=== PATIENT | female | born 1975 | race Hispanic/Latino ===

== ENCOUNTER 2020-05-19 08:39 | Outpatient (CLI) | payer OTHER, SELFPAY ==
--- NOTE | ~2020-05-19 | XR_ITS ---
XR hip LT 2V w AP pelvis DATE: 05/19/2020 09:11 INDICATION: Nontraumatic left hip TECHNIQUE: AP pelvis. AP and lateral views of left hip. COMPARISON: None FINDINGS: No pelvic fracture or bone destruction. The pubic symphysis and sacroiliac joints are inta ct. Bilateral fallopian tube radiopaque devices are present. IMPRESSION: Bilateral Essure tubal devices. Reviewed, dictated and finalized at location B.
--- NOTE | ~2020-05-19 | US_ITS ---
EXAMINATION: US soft tissue groin RT DATE: 05/19/2020 09:59 INDICATION: Right inguinal mass TECHNIQUE: Multiple grayscale and Doppler ultrasound images of the region of concern at the right sushma in were obtained. COMPARISON: None FINDINGS: The region of concern there is a 4 x 4 by 5 mm anechoic cyst with posterior acoustic enhancement cent imeters in the subcutaneous fat centered 1.3 cm deep to the skin surface and 3 cm medial to the commo n femoral artery and vein. No evident solid soft tissue component or internal flow on color Doppler. IMPRESSION: 1. Nonspecific likely benign simple appearing 5 cm cystic lesion in the subcutaneous fat at the regio n of concern. Reviewed, dictated and finalized at location A. IMPRESSION: 1. Nonspecific likely benign simple appearing 5 cm cystic lesion in the subcuta neous fat at the region of concern.
== END 2020-05-19 08:40 | disposition home or self-care (01) ==
LOC: ANHIMG 08:48
PROVIDERS: PCP Family Medicine; Visit Provider Physician Assistant
DX: R19.03 Right lower quadrant abdominal swelling, mass and lump (principal); Z97.5 Presence of (intrauterine) contraceptive device
CPT/HCPCS: 73502; 76882

== ENCOUNTER 2021-02-20 16:57 | Outpatient (CLI) | payer OTHER, SELFPAY | END 2021-02-20 16:58 | disposition home or self-care (01) | LOC: ANHCOVIDVC 16:57 | PROVIDERS: PCP Family Medicine | DX: Z23 Encounter for immunization (principal) | CPT/HCPCS: 0001A; 91300 ==

== ENCOUNTER 2021-03-14 17:31 | Outpatient (CLI) | payer OTHER, SELFPAY | END 2021-03-14 17:32 | disposition home or self-care (01) | LOC: ANHCOVIDVC 17:32 | PROVIDERS: PCP Family Medicine | DX: Z23 Encounter for immunization (principal) | CPT/HCPCS: 0002A; 91300 ==

== ENCOUNTER 2022-01-29 12:50 | Outpatient (CLI) | payer OTHER, SELFPAY | END 2022-01-29 12:51 | disposition home or self-care (01) | LOC: ANHAUDIO 12:51 | PROVIDERS: PCP Family Medicine; Visit Provider Otolaryngology | DX: H93.19 Tinnitus, unspecified ear (principal) | CPT/HCPCS: 92557; 92567 ==

== ENCOUNTER 2022-05-01 12:30 | Emergency (ER) | payer OTHER, SELFPAY ==
[2022-05-01 12:33] VITALS: BP 159/79; PULSE 70; RESP 18; TEMP 36.6; O2SAT 100
--- NOTE | 2022-05-01 12:36 | ECG_ITS ---
Measurements Intervals [place] Rate: 63 P: 8 MD: 121 QRS: 9 QRSD: 95 T: 27 QT: 387 QTc: 399 Interpretive Statements SINUS RHYTHM LOW-VOLTAGE QRS PRECORDIAL LEADS BORDERLINE ECG NO PREVIOUS ECG AVAILABLE FOR COMPARISON Electronically Signed On 05-01-2022 15:06:30 CDT by Tommy Hankins M.D.
--- NOTE | 2022-05-01 13:03 | ED.ALLEREA ---
HPI - Allergic Reaction General Chief complaint: Allergic Reaction Stated complaint: covid vaccine reaction Time Seen by Provider: 05/01/22 12:41 History of Present Illness HPI narrative: 47-year-old female presents the emergency room for evaluation of adverse reaction to the Pfizer COVID-vaccine. Patient states that approximate 11:00 this morning she received her third Pfizer shot, and within 30 minutes began experiencing difficulty breathing shortness of breath, pruritus to her chest and her back and right arm. Patient states that she immediately took 50 of Benadryl and approximately 30 minutes later symptoms began to resolve. Related Data Allergies Allergy/AdvReac Type Severity Reaction Status Date / Time poison maame extract Allergy Mild RASH, Verified 02/08/22 13:10 ITCHING Review of Systems Review of Systems: CONSTITUTIONAL: Denies fever, chills, or sweats. EYES: Denies visual changes, redness, or discharge. ENT: Denies rhinorrhea, congestion, sore throat, or otalgia. CARDIOVASCULAR: Denies chest pain, palpitations, or edema. RESPIRATORY: Reports dyspnea. GASTROINTESTINAL: Denies abdominal pain, nausea, vomiting, or diarrhea. GENITOURINARY: Denies dysuria or hematuria. SKIN: Reports itching. MUSCULOSKELETAL: Denies back pain, joint pain, or myalgia. NEUROLOGIC: Denies headache, numbness, dizziness, or weakness. PSYCHIATRIC: Denies anxiety or depression. [facility] Past Medical History Medical History (Updated 05/01/22 @ 14:56 by Jules Grayson, LOG CHAIN WORKER) Asthma Family History Family History Grandparent Diabetes mellitus Cerebrovascular accident Mother Hypertension Family history of elevated blood lipids Social History Social History Smoking status: Never smoker Second hand tobacco smoke exposure: No Alcohol intake: current Exam Narrative: GENERAL: Well-appearing, well-nourished, and in no acute distress. HEAD: Normocephalic, atraumatic. EYES: PERRLA and EOMI. ENT: Nares clear, no rhinorrhea or epistaxis. Mucous membranes moist. Oropharynx without tonsillar hypertrophy exudate or other lesions. Bilateral TMs pearly moise nonbulging NECK: Supple. No adenopathy or masses. No carotid bruits or JVD CHEST: Clear to auscultation. No respiratory distress. No wheezes rales or rhonchi HEART: Regular rate and rhythm. No murmur heard. Normal peripheral pulses. EXTREMITIES: Normal range of motion. No edema. SKIN: Warm, dry, no rash. NEURO: No focal deficits. Alert and oriented x3. PSYCH: Normal mood and affect. Course Course Emergency Course: 1300: [facility] report completed. Vital Signs Vital signs: Vital Signs Temperature 36.6 C 05/01/22 12:33 Pulse Rate 70 05/01/22 12:33 Respiratory Rate 18 05/01/22 12:33 Blood Pressure 159/79 H 05/01/22 12:33 Pulse Oximetry 100 05/01/22 12:33 Oxygen Delivery Room Air 05/01/22 12:33 Temperature 36.6 C 05/01/22 12:33 Pulse Rate 70 05/01/22 12:33 Respiratory Rate 18 05/01/22 12:33 Blood Pressure 159/79 H 05/01/22 12:33 Pulse Oximetry 100 05/01/22 12:33 Oxygen Delivery Room Air 05/01/22 12:33 Discharge Plan Discharge Clinical Impression: Adverse reaction to drug Patient Disposition: Home, Self-Care Condition: Stable Instructions: Antibiotic Form, Adverse Drug Reaction (ED) Prescriptions: New prednisone 20 mg tablet 60 mg PO DAILY 5 Days Qty: 15 0RF No Action albuterol sulfate [Ventolin HFA] 90 mcg/actuation HFA aerosol inhaler 1 inh inhalation Q4H PRN (Reason: shortness of breath or wheezing) Qty: 8.5 0RF fluticasone propionate 50 mcg/actuation spray,suspension 1 spray intranasal BID Qty: 16 0RF Rx Instructions: administer into each nostril Follow-up/Referrals: Stacey Richard MD [Primary Care Provider] - Time of Disposition: 14:57
[2022-05-01] MEDS: FAMOTIDINE 20 MG/2 ML VIAL IV PUSH (13:12)
[2022-05-01] MEDS: methylPREDNISolone SOD SUCC 125 MG VIAL IV PUSH (13:12)
== END 2022-05-01 16:00 | disposition home or self-care (01) ==
PROVIDERS: Emergency Provider Nurse Practitioner Family; PCP Family Medicine
DX: R06.02 Shortness of breath (principal); L29.9 Pruritus, unspecified; R94.31 Abnormal electrocardiogram [ECG] [EKG]; T50.B95A Adverse effect of other viral vaccines, initial encounter
CPT/HCPCS: 93005; 96374; 96375; 99284; J2930

== ENCOUNTER 2023-01-13 20:48 | Emergency (ER) | payer OTHER, SELFPAY ==
--- NOTE | ~2023-01-13 | XR_ITS ---
EXAMINATION: XR chest 2V DATE: 01/13/2023 21:36 INDICATION: Sternal chest pain/pressure and shortness of breath TECHNIQUE: PA and lateral views of the chest were obtained. COMPARISON: None FINDINGS: The lungs are clear with no focal airspace opacities, pulmonary edema, pleural effusion or pneumothor ax. The cardiomediastinal silhouette is normal. Mild thoracic spondylosis. IMPRESSION: 1. No acute cardiopulmonary disease. Reviewed, dictated and finalized at location A. RAFT STRUCTURAL REPAIR MECHANIC
[2023-01-13 20:53] VITALS: BP 140/79; PULSE 107; RESP 20; TEMP 36.4; O2SAT 97
--- NOTE | 2023-01-13 20:56 | ECG_ITS ---
Measurements Intervals [place] Rate: 90 P: 76 NC: 156 QRS: 34 QRSD: 95 T: 69 QT: 347 QTc: 426 Interpretive Statements SINUS RHYTHM NORMAL ECG COMPARED TO ECG 05/01/2022 12:40:16 NO SIGNIFICANT CHANGES Electronically Signed On 01-13-2023 21:06:52 MATERIAL CARRIER by Aureliano Atwood D.O.
[2023-01-13 21:30] LABS: Basophils Percent Auto 0.5 % (0.2-1.2); Eosinophils Absolute Auto 0.6 K/mm3 (0-0.3); Eosinophils Percent Auto 14.8 % (0-4.4); Hematocrit 39.5 % (37.0-47.0); Hemoglobin 13.3 g/dL (12.0-15.0); Immature Granulocyte Absolute 0.01 K/mm3 (0.00-0.031); Immature Granulocyte Percent A 0.2 % (0-0.5); Lymphocytes Percent Auto 24.2 % (18.3-44.2); Mean Corpuscular HGB Conc 33.7 g/dl (32-36); Mean Corpuscular Hemoglobin 31.1 pg (26-34); Mean Corpuscular Volume 92.3 fl (80-100); Mean Platelet Volume 10.4 fl (7.4-10.4); Monocytes Absolute Auto 0.6 K/mm3 (0.1-0.6); Monocytes Percent Auto 13.8 % (2.6-8.5); Neutrophils Absolute Auto 1.9 K/mm3 (1.3-6.7); Neutrophils Percent Auto 46.5 % (45.5-73.1); Platelet Count Result 207 k/mm3 (150-375); Red Blood Count 4.28 M/mm3 (4.2-5.4); Red Cell Distribution Width 13.3 % (11.5-14.5); White Blood Count 4.1 K/mm3 (4.5-10.0)
[2023-01-13 21:40] LABS: Alanine Aminotransferase 101 U/L (6-35); Albumin Level 4.5 g/dL (3.5-5.1); Alkaline Phosphatase 63 U/L (38-126); Anion Gap 7 mmol/L (8-16); Aspartate Amino Transferase 545 U/L (14-36); Bilirubin,Total 0.5 mg/dL (0.2-1.3); Blood Urea Nitrogen 10 mg/dL (7-17); Calcium 9.1 mg/dL (8.4-10.2); Carbon Dioxide 30 mmol/L (22-30); Chloride 103 mmol/L (98-107); Estimated Glomerular Filt Rate > 60; Glucose 93 mg/dL (65-110); Potassium 3.9 mmol/L (3.4-5.0); Sodium 140 mmol/L (137-145)
[2023-01-14] VITALS (8 sets, daily range): BP systolic 101–127; BP diastolic 61–78; PULSE 70–89; RESP 18–24; O2SAT 93–98
[2023-01-14] MEDS: predniSONE 20 MG TABLET 60 MG PO (01:24)
[2023-01-14] MEDS: ALBUTEROL SULFATE NEB 2.5 MG/3 ML INH INHALATION (01:26)
[2023-01-14] MEDS: IPRATROPIUM BR 0.02% INH SOLN 0.5 MG/2.5 ML VIAL INHALATION (01:26)
--- NOTE | 2023-01-14 01:42 | ED.GENADULT ---
HPI - General Adult General Chief complaint: Asthma Stated complaint: Short of breath Time Seen by Provider: 01/14/23 00:56 History of Present Illness HPI narrative: Patient 47-year-old female who presents the emergency department with chief complaint of shortness of breath. Patient reports that she has history of asthma and reports that she has been wheezing worse over the last week reports has been using her inhaler more frequently and notes she has had a little bit of nasal congestion patient is concerned that she is developing a sinus infection although her symptoms have only been ongoing for approximately 7 days. Related Data Allergies Allergy/AdvReac Type Severity Reaction Status Date / Time COVID-19 vaccine, mRNA, Allergy Severe Dyspnea / Verified 05/10/22 08:11 [id number], L SOB poison maame extract Allergy Mild RASH, Verified 02/08/22 13:10 ITCHING Review of Systems Review of Systems: A 10 system review of systems was completed on the patient and is negative except for what is stated in the HPI. Nursing and ancillary documentation was reviewed. [facility], [facility] Past Medical History Medical History (Updated 01/14/23 @ 01:46 by Vishal Powell MD) Asthma Family History Family History Grandparent Diabetes mellitus Cerebrovascular accident Mother Hypertension Family history of elevated blood lipids Social History Social History Smoking status: Never smoker Second hand tobacco smoke exposure: No Alcohol intake: current Exam Narrative: GENERAL: Well-appearing, well-nourished, and in no acute distress. HEAD: Normocephalic, atraumatic. EYES: PERRLA and EOMI. ENT: Nares clear, no rhinorrhea or epistaxis. Mucous membranes moist. NECK: Supple. CHEST: Clear to auscultation. No respiratory distress. HEART: Regular rate and rhythm. No murmur heard. Normal peripheral pulses. ABDOMEN: Soft, nontender, nondistended, normal active bowel sounds. EXTREMITIES: Normal range of motion. No edema. SKIN: Warm, dry, no rash. NEURO: No focal deficits. Alert and oriented x3. PSYCH: Normal mood and affect. Course Vital Signs Vital signs: Vital Signs Temperature 36.4 C L 01/13/23 20:53 Pulse Rate 107 H 01/13/23 20:53 Respiratory Rate 20 01/13/23 20:53 Blood Pressure 140/79 01/13/23 20:53 Pulse Oximetry 97 01/13/23 20:53 Oxygen Delivery Room Air 01/13/23 20:53 Temperature 36.4 C L 01/13/23 20:53 Pulse Rate 83 01/14/23 01:46 Respiratory Rate 20 01/14/23 01:46 Blood Pressure 112/64 01/14/23 01:46 Pulse Oximetry 96 01/14/23 01:46 Oxygen Delivery Room Air 01/13/23 20:53 Medical Decision Making MDM Narrative Medical decision making narrative: Differential diagnosis includes asthma exacerbation, upper respiratory infection, viral sinusitis Chest x-ray interpreted by me shows no focal infiltrate Currently the patient is less than 10 days of onset of symptoms and is most likely viral sinusitis. The patient will be started on steroids patient will also be provided a antitussive agent. Vital Signs Vital Signs: Vital Signs Temperature 36.4 C L 01/13/23 20:53 Pulse Rate 107 H 01/13/23 20:53 Respiratory Rate 20 01/13/23 20:53 Blood Pressure 140/79 01/13/23 20:53 Pulse Oximetry 97 01/13/23 20:53 Oxygen Delivery Room Air 01/13/23 20:53 Temperature 36.4 C L 01/13/23 20:53 Pulse Rate 83 01/14/23 01:46 Respiratory Rate 20 01/14/23 01:46 Blood Pressure 112/64 01/14/23 01:46 Pulse Oximetry 96 01/14/23 01:46 Oxygen Delivery Room Air 01/13/23 20:53 Lab Data 01/13/23 21:20 01/13/23 21:20 Labs: Lab Results 01/13/23 01/13/23 01/14/23 Range/Units 21:20 21:20 01:44 WBC 4.1 L (4.5-10.0) K/mm3 RBC 4.28 (4.2-5.4) M/mm3 Hgb 13.3 (12.0-15.0) g/dL Hct 39.5 (37.0
[2023-01-14 04:52] LABS: Influenza A QL RT-PCR Negative (Negative); Influenza B QL RT-PCR Negative (Negative); SARS-CoV-2 RNA PCR Negative
== END 2023-01-14 03:15 | disposition home or self-care (01) ==
PROVIDERS: Emergency Provider Emergency Medicine; PCP Family Medicine
DX: J45.901 Unspecified asthma with (acute) exacerbation (principal); J06.9 Acute upper respiratory infection, unspecified; Z20.822 Contact with and (suspected) exposure to COVID-19
CPT/HCPCS: 36415; 71046; 80053; 85025; 87636; 93005; 94640; 99284; J7512

== ENCOUNTER 2023-02-04 07:46 | Outpatient (CLI) | payer OTHER, SELFPAY ==
--- NOTE | ~2023-02-04 | US_ITS ---
Limited Abdominal Sonogram: Real-time sonographic imaging of the right upper quadrant was performed. Clinical History: Abnormal levels of serum enzymes Findings: The liver appears normal with no evidence of solid mass lesion or bile duct dilatation. He patic cyst measures 2.3 cm in diameter Main portal vein demonstrates normal direction of flow. The ga llbladder is well distended, and contains echogenic, shadowing gallstones. Gallbladder wall is mildly thickened to 5 mm. The common bile duct measures 4 mm. The visualized pancreas, aorta, and IVC are unremarkable. Right kidney measures 8.8 cm in length, without evidence for hydronephrosis. Impression: Cholelithiasis. Mild gallbladder wall thickening raises the possibility of superimposed acute cholecystitis. Correlat e clinically. Consider HIDA scan for further evaluation as indicated. Reviewed, dictated and finalized at [facility]. Impression: Cholelithiasis. Mild gallbladder wall thickening raises the possibility of superimposed acute c holecystitis. Correlate clinically. Consider HIDA scan for further evaluation a s indicated.
== END 2023-02-04 07:47 ==
LOC: MICIMG 07:47
PROVIDERS: PCP Family Medicine; Visit Provider Physician Assistant Medical
DX: R74.8 Abnormal levels of other serum enzymes (principal); K80.20 Calculus of gallbladder without cholecystitis without obstruction; K82.9 Disease of gallbladder, unspecified
CPT/HCPCS: 76705

== ENCOUNTER 2025-05-31 10:58 | Outpatient (CLI) | payer BC, SELFPAY ==
--- NOTE | ~2025-05-31 | MM_ITS ---
EXAMINATION: screening [facility] BI w nisla INDICATION: Asymptomatic, referred for screening mammogram COMPARISON: 08/12/2018 TECHNIQUE: Digital Breast Tomosynthesis CC, MLO views of Both breasts were obtained with computer-ai ded detection to assist in interpretation of the study. FINDINGS: The breasts are heterogeneously dense, which may obscure small masses. There is a group of microcalcifications in the superior lateral right breast at mid to posterior dept h centered at 5.7 cm posterior to the nipple. Elsewhere, there are no mammographic features of malignancy. IMPRESSION: 1. Right breast Incompletely characterized group of calcifications. 2. No evidence of malignancy in the Left breast. RECOMMENDATION: Right breast Diagnostic mammogram with true lateral, and appropriate magnification views. BI-RADS Category 0: Incomplete: Needs additional imaging evaluation. Reviewed, dictated and finalized at location B. IMPRESSION: 1. Right breast Incompletely characterized group of calcifications. 2. No evidence of malignancy in the Left breast. RECOMMENDATION: Right breast Diagnostic mammogram with true lateral, and appropriate magnificat ion views. BI-RADS Category 0: Incomplete: Needs additional imaging evaluation.
--- OUTSIDE RECORDS SUMMARY | 2025-05-31 11:03 | XMS_ITS | Clinical Summary ---
Author Organization [facility] Address [address] [place] [address] Phone Care Team Providers Care Auriculotherapist Name Role Phone Unavailable Primary Care Provider Unavailabl e Allergies No known active allergies Medications fluticasone propion-salmete roL (ADVAIR DISKUS,WIXELA INHUB) 100-50 mcg/dose disk inhaler Take 1 Puff by inhalation 2 times daily. Active Active Problems No known active problems Family History Medical History Relation Name Comments No Known Problems Brother No Known Problems Daughter 1 No Known Problems Daughter 2 No Known Problems Daughter 3 Other Father Other Maternal Grandfather COPD Diabetes Maternal Grandmother passed of a heart attack Other Mother alzheimers Thyroid Disease Mother Other Paternal Grandfather alzheim ers Ovarian Cancer Paternal Grandmother No Known Problems Sister 1 No Known Problems Sister 2 Relation Name Status Comments Brother Alive Daughter 1 Alive Daughter 2 Alive Daughter 3 Alive Father Maternal Grandfather Maternal Grandmother Mother Alive Paternal Grandfather Paternal Grandmother Sister 1 Alive Sister 2 Alive Social History Tobacco Use Types Packs/Day Years Used Date Smoking Tobacco: Never Passive Smoke Exposure: Never Smokeless Tobacco: Never Alcohol Use Standard Drinks/Week Comments Yes 0 (1 standard drink = 0.6 oz pur e alcohol) socially Comments No Sex and Gender Information Value Date Recorded Sex Assigned at Not on file Legal Sex Female 10:08 AM CDT Gender Identity Not on file Sexual Orientation Not on file Last Filed Vital Signs Vital Sign Reading Time Taken Comments Blood Pressure 126/80 11/26/2023 3:04 PM MANAGER EVENT Pulse - - Temperature - - Respiratory Rate - - Oxygen Saturation - - Inhaled Oxygen Concentration - - Weight 86.2 kg (190 lb) 11/26/2023 3:04 PM MANAGER EVENT Height 149.9 cm (4' 11) 11/26/2023 3:04 PM MANAGER EVENT Body Mass Index 38.38 11/26/2023 3:04 PM MANAGER EVENT Plan of Treatment Health Maintenance Due Date Last Done Comments DTAP/TDAP/TD VACCINES (1 - Tdap) 02/09/1992 HEPATITIS B VACCINES (1 of 3 - 19+ 3-dose series) 01/11 BREAST CANCER SCREENING 2013 COLORECTAL SCREENING 2018 Colorectal Cancer Screening 2018 FIT-DNA Q 3 years 2018 FIT/FOBT Q 1 year 2018 Flex Sig/CT Colonography Q 5 years 2018 ZOSTER VACCINE (1 of 2) 2023 INFLUENZA VACCINE (#1) 2025 11/18/2023 PAP SMEAR 11/26/2026 11/26/2023 CERVICAL CANCER SCREENING 11/26/2028 HPV/Cotest (21-29) 11/26/2028 11/26/2023 HPV/Cotest (30-65) 11/26/2028 11/26/2023 Procedures Procedure Name Priority Date/Time Associated Diagnosis Comments CERV/VAG CYTO AGE BASED SCREEN PAP Routine 11/26/2023 4:16 PM MANAGER EVENT Well woman exam with routine gynecological exam Screening for HPV (human papillomavirus) Screening for venereal disease (VD) Cervical cancer screening from Last 3 Months or Most Recently Relevant to Health Maintenance Results * CERV/VAG CYTO AGE BASED SCREEN PAP (11/26/2023 4:16 PM MANAGER EVENT) COMMENT (PAP): [facility] Comment: This order for age-based cervical cancer and STI screening follows ACOG guidelines(PB 168, 140, LYY517). See individual assays for performing site location. CLINICAL INFORMATION [facility] Comment:None given LAST MENSTRUAL PERIOD [facility] Comment:NONE GIVEN PREV PAP: [facility] Comment:NONE GIVEN PREV BX: [facility] Comment:NONE GIVEN SOURCE [facility] Comment:Endocervix ADEQUACY: [facility] Comment: Satisfactory for evaluation. Endocervical/transformation zone component present. Age and/or menstrual status not provided PAP INTERP [facility] Comment: Cytology Results: Negative for intraepithelial lesion or malignancy. COMMENT (PAP TEST) [facility] Comment: This Pap test has been evaluated with computer assisted technology. GROUTER HELPER: Angie Frias Comment: AGNES WILLIS(ASCP) CT screening location: [place] [address] [place] [address] EXPLANATORY NOTE [facility] Comment: EXPLANATORY NOTE: The Pap is a screening test for cervical cancer. It is not a diagnostic test and is subject to false negative and false positive results. It is most reliable when a satisfactory sample, regularly obtained, is submitted with relevant clinical findings and history, and when the Pap result is evaluated along with historic and current clinical information. HPV E6/E7 Not Detected Not Detected [facility] Comment: Methodology: [employer]-Mediated Amplification This assay detects E6/E7 viral messenger RNA (mRNA) from 14 high-risk HPV types (16,18,31,33,35,39,45,51,52,56,58,59,66,68). Cervical sources are required for HPV testing. If a vaginal source from a patient who has had a total hysterectomy with removal of cervix was submitted, please contact the testing laboratory for alternative testing options. For additional information, please refer to http://education.Heroku/faq/CQJ747q6 (This link if provided for information/ educational purposes only.) FASTING: UNKNOWN Test Performed at: [facility] [address] [place] [address] Kim FUENTES Genital SWAB OF ENDOCERVIX / Unknown 11/26/2023 4:16 PM MANAGER EVENT 11/27/2023 2:24 AM MANAGER EVENT us Gabriela Srinivasan DO PATHOLOGY/CYTOLOGY ORDERABLES F inal Result [facility] [phone] [facility] [address] [place] [address] from Last 3 Months or Most Recently Relevant to Health Maintenance Insurance BLUE ACCESS/TRUE BLUE PPO
--- OUTSIDE RECORDS SUMMARY | 2025-05-31 11:03 | XMS_ITS ---
Author Organization [facility] [employer] [place] ([address]) Address [address] [place] [address] Care Team Providers Care Process Chemist Name Role Phone Jose ManuelStacey Primary Care Provider Brigida Elliott Unavailable [phone] REASON FOR VISIT SCIT - Traditional Schedule Allergy immunotherapy Social History Sex Assigned At : Social History Observation Description Sex Assigned At Female Encounters Encounter Location Date Provider Diagnosis [facility] [address] [facility] [address] [place] [address] 05/12/2025 Brigida Valdivia Allergic rhinitis du e to pollen J30.1 ; Allergic rhinitis due to animal (cat) (dog) hair and dander J30.81 ; Other allergic rhinitis J30.89 and Other chronic allergic conjunctivitis H10.45 Assessments Encounter Date Diagnosis (ICD Code) Assessment Notes Treatment Notes Treatment Clinical Notes Section Notes 05/12/2025 Allergic rhinitis due to pollen (ICD-10 - J30.1) 05/12/2025 Allergic rhinitis due to animal (cat) (dog) hair and dander (ICD-10 - J30.81) 05/12/2025 Other allergic rhinitis (ICD-10 - J30.89) 05/12/2025 Other chronic allergic conjunctivitis (ICD-10 - H10.45) Plan Of Treatment Next Appt Details Follow Up: 1 Week, Reason: Progress Notes * Florian PEREZB:1975 (50 yo F)Acc No.[id number]:05/12/2025 SCIT-Aeroallergen Patient: Fannie BARBOSA Provider: Merlyn Valdivia MD :1975 A ge:50 Y S ex:Female Date:05/12/2025 [id number] Pcp:Stacey Richard Subjective: * Chief Complaints: * 1 . SCIT - Traditional Schedule Allergy immunotherapy. * HPI: * Introduction: The patient is here for scheduled immunotherapy. Please see the attached specialty form regarding the specifics of the administration of these vaccines. As per our protocol, they must undergo a screening health questionnaire (medication changes, reaction(s) to last immunotherapy dose(s), current health status, ACT (if appropriate), self-injectable epinephrine on patient(?) and peak flow (if appropriate)). Also, the patient must wait in our office for 30 minutes after receiving the vaccine(s). Furthermore, every patient must have an epinephrine pen (self-injectable) with them at the time of administration--and carry if for the following 1.5 hours after they leave our office. The patient must also have taken their antihistamine the day of the injection, preferably 2 hours prior. The consent form for SCIT (subcutaneous immunotherapy) is on file. * Medical History: Objective: * Vitals: Assessment: * Assessment: 1. A llergic rhinitis due to pollen - J30.1 (Primary) 2 . A llergic rhinitis due to animal (cat) (dog) hair and dander - J30.81 3 . O ther allergic rhinitis - J30.89 4 . O ther chronic allergic conjunctivitis - H10.45 Plan: * Treatment: * Procedure Codes: 9 5117 IMMUNOTHERAPY INJECTIONS * Preventive Medicine: Counseling: E xercise A void heavy lifting on days of allergy immunotherapy. M edication instruction: I njectable epinephrine education and instruction w/ discussion of signs and symptoms of anaphylaxis and reasons to seek urgent or emergent care, Watch for side effects of prescribed medications. E ducation: A ble to return demonstration of self-injectable epinephrine. * Follow Up: 1 Week * Billing Information: * Visit Code: * Procedure Codes: 42107 IMMUNOTHERAPY INJECTIONS. * Electronic signature of Lisa Valdivia MD on 05/31/2025 at 11:03 AM CDT Sign off status: Pending * Provider: Merlyn Valdivia MD Date: 0 05/12/2025 Generated for Jayla shelley/Tristan/Saqib on: 05/31/2025 11:03 AM CDT History and Physical Notes * HPI (History of Present Illness) Category Sub-Category Detail Notes Category Not es *Introduction The patient is here for scheduled immunotherapy. Please see the attached specialty form regarding the specifics of the administration of these vaccines. As per our protocol, they must undergo a screening health questionnaire (medication changes, reaction(s) to last immunotherapy dose(s), current health status, ACT (if appropriate), self-injectable epinephrine on patient(?) and peak flow (if appropriate)). Also, the patient must wait in our office for 30 minutes after receiving the vaccine(s). Furthermore, every patient must have an epinephrine pen (self-injectable) with them at the time of administration--and carry if for the following 1.5 hours after they leave our office. The patient must also have taken their antihistamine the day of the injection, preferably 2 hours prior. The consent form for SCIT (subcutaneous immunotherapy) is on file.
--- OUTSIDE RECORDS SUMMARY | 2025-05-31 11:03 | XMS_ITS | Patient Health Record ---
Author Organization [facility] ([address]) Address [address] [place] [address] Care Team Providers Care Housekeeping/Laundry Name Role Phone Jose ManuelStacey Primary Care Provider Brigida Elliott Unavailable [phone] Allergies Allergen (clinical drug ingredient) Drug/Non Drug Allergy documented on EMR Reaction Allergy Type Onset Date Status ALLERGIC TO PFIZER VACCINE (uncoded) difficulty breathing and hives Allergy Active Results Component Value Reference Range Notes Spirometry Reviewed date: Interpretation:Normal Performing Lab: Notes/Report: Normal SpiroPreBronchodilator_FVC 2.9 SpiroPostBronchodilator_FEF25_75 0 SpiroPreBronchodilator_FEF25_75 1.64 SpiroPreBronchodilator_FEV1 2.14 SpiroPrecentPredictionPost_FEF25_75 0 SpiroPrecentPredictionPost_FEV1 0 SpiroPrecentPredictionPost_FEV1_OVER_FVC 0 SpiroPrecentPredictionPost_FVC 0 SpiroPrecentPredictionPre_FEF25_75 61.9 SpiroPrecentPredictionPre_FEV1 91.8 SpiroPrecentPredictionPre_FEV1_OVER_FVC 89.2 SpiroPrecentPredictionPre_FVC 103.9 SpiroPredicted_FEF25_75 2.65 SpiroPreBronchodilator_FEV1_OVER_FVC 73.64 SpiroPreBronchodilator_PEF 4.54 SpiroPostBronchodilator_FVC 0 SpiroPostBronchodilator_FEV1 0 SpiroPostBronchodilator_FEV1_OVER_FVC 0 SpiroPostBronchodilator_PEF 0 SpiroPredicted_FVC 2.79 SpiroPredicted_FEV1 2.33 SpiroPredicted_FEV1_OVER_FVC 82.59 SpiroPredicted_PEF 5.46 Spirometry Reviewed date: Interpretation:Normal Performing Lab: Notes/Report: Normal SpiroPreBronchodilator_FVC 2.98 SpiroPostBronchodilator_FEF25_75 0 SpiroPreBronchodilator_FEF25_75 1.8 SpiroPreBronchodilator_FEV1 2.24 SpiroPrecentPredictionPost_FEF25_75 0 SpiroPrecentPredictionPost_FEV1 0 SpiroPrecentPredictionPost_FEV1_OVER_FVC 0 SpiroPrecentPredictionPost_FVC 0 SpiroPrecentPredictionPre_FEF25_75 66.9 SpiroPrecentPredictionPre_FEV1 95.3 SpiroPrecentPredictionPre_FEV1_OVER_FVC 90.8 SpiroPrecentPredictionPre_FVC 105.7 SpiroPredicted_FEF25_75 2.69 SpiroPreBronchodilator_FEV1_OVER_FVC 75.24 SpiroPreBronchodilator_PEF 5.47 SpiroPostBronchodilator_FVC 0 SpiroPostBronchodilator_FEV1 0 SpiroPostBronchodilator_FEV1_OVER_FVC 0 SpiroPostBronchodilator_PEF 0 SpiroPredicted_FVC 2.82 SpiroPredicted_FEV1 2.35 SpiroPredicted_FEV1_OVER_FVC 82.84 SpiroPredicted_PEF 5.48 Reason For Referral No Information Medications Medication SIG (Take, Route, Frequency, Duration) Notes Start Date End Date Status FEXOFENADINE HYDROCHLORIDE 180 mg 1 tab(s) orally once a day Active FLUTICASONE-SALMETEROL 500 mcg-50 mcg 1 INH inhaled 2 times a day; Duration: 90 days Active EPINEPHRINE AUTO-INJECTOR 0.3 mg as directed intramuscularly once; Duration: 1 days Active ALBUTEROL 90 mcg/inh 2 puff(s) inhaled e very 6 hours Active Social History Tobacco Use: Social History Observation Description Date Details (start date - stop date) Never Smoker NA - NA Sex Assigned At : Social History Observation Description Sex Assigned At Female Tobacco Control (Standard) Question Answer Notes Tobacco use: Nonsmoker Problems Problem Type SNOMED Code ICD Code Onset Dates Problem Status W/U Status Risk Notes Problem Morbid obesity (disorder) (170953469) Morbid (severe) obesity due to excess calories (E66.01) Active confirmed Problem Chronic allergic conjunctivitis (36656892) Other chronic allergic conjunctivitis (H10.45) Active confirmed Problem Allergic rhinitis caused by pollen (disorder) (18194561) Allergic rhinitis due to pollen (J30.1) Active confirmed Problem Allergic rhinitis (86001775) Other allergic rhinitis (J30.89) Active confirmed Problem Uncomplicated moderate persistent asthma (253041757) Moderate persistent asthma, uncomplicated (J45.40) Active confirmed Problem Chronic fatigue syndrome (disorder) (25317056) Chronic fatigue, unspecified (R53.82) Active confirmed Problem Allergic rhinitis caused by animal hair and dander (535998991074898) Allergic rhinitis due to animal (cat) (dog) hair and dander (J30.81) Active confirmed Vital Signs Oximetry 97 % 03/31/2025 Blood pressure diastolic 73 mm Hg 03/31/2025 Height 60.2 in 03/31/2025 Blood pressure systolic 115 mm Hg 03/31/2025 Weight 138.4 lbs 03/31/2025 BMI 26.85 kg/m2 03/31/2025 Encounters Encounter Location Date Provider Diagnosis [facility] [address] [place] [phone] 07/27/2024 Brigida Valdivia Moderate persistent asthma, uncomplicated J45.[address] [address] 03/31/2025 Brigida Valdivia [address] [address] 08/19/2024 Brigida Valdivia Allergic rhinitis du e to pollen J30.1 ; Moderate persistent asthma, uncomplicated J45.40 ; Allergic rhinitis due to animal (cat) (dog) hair and dander J30.81 ; Other allergic rhinitis J30.89 and Other chronic allergic conjunctivitis H10.45 [facility] [address] [address] 03/31/2025 Brigida Valdivia Allergic rhinitis du e to pollen J30.1 ; Moderate persistent asthma, uncomplicated J45.40 ; Allergic rhinitis due to animal (cat) (dog) hair and dander J30.81 ; Other allergic rhinitis J30.89 and Other chronic allergic conjunctivitis H10.45 [facility] [address] [place], [place] [address] [address] [address] 06/15/2024 Brigida Valdivia Allergic rhinitis du e to pollen J30.1 ; Allergic rhinitis due to animal (cat) (dog) hair and dander J30.81 ; Other allergic rhinitis J30.89 and Other chronic allergic conjunctivitis H10.45 [facility] [address] [place], [place] [address] [address] [address] 04/21/2025 Brigidanatalia Valdivia Allergic rhinitis du e to pollen J30.1 ; Allergic rhinitis due to animal (cat) (dog) hair and dander J30.81 ; Other allergic rhinitis J30.89 and Other chronic allergic conjunctivitis H10.45 [facility] [address] [place], [place] [address] [address] [address] 04/28/2025 Brigida Valdivia Allergic rhinitis du e to pollen J30.1 ; Allergic rhinitis due to animal (cat) (dog) hair and dander J30.81 ; Other allergic rhinitis J30.89 and Other chronic allergic conjunctivitis H10.45 [facility] [address] [place], [place] [address] [address] [address] 05/05/2025 Brigida Valdivia Allergic rhinitis du e to pollen J30.1 ; Allergic rhinitis due to animal (cat) (dog) hair and dander J30.81 ; Other allergic rhinitis J30.89 and Other chronic allergic conjunctivitis H10.45 [facility] [address] [place], [place] [address] [address] [place] [address] 05/27/2025 Brigidanatalia Villatorom Allergic rhinitis du e to pollen J30.1 ; Allergic rhinitis due to animal (cat) (dog) hair and dander J30.81 ; Other allergic rhinitis J30.89 and Other chronic allergic conjunctivitis H10.45 [facility] [address] [place], [place] [address] [address] [place] [address] 08/24/2024 Brigidanatalia Valdivia Allergic rhinitis du e to pollen J30.1 ; Allergic rhinitis due to animal (cat) (dog) hair and dander J30.81 ; Other allergic rhinitis J30.89 and Other chronic allergic conjunctivitis H10.45 [facility] [address] [place] [address] [employer] [address] [address] 08/31/2024 Brigida Valdivia Allergic rhinitis du e to pollen J30.1 ; Allergic rhinitis due to animal (cat) (dog) hair and dander J30.81 ; Other allergic rhinitis J30.89 and Other chronic allergic conjunctivitis H10.45 [facility] [address] [place], [place] [address] [address] [address] 09/07/2024 Brigida Shea Allergic rhinitis du e to pollen J30.1 ; Allergic rhinitis due to animal (cat) (dog) hair and dander J30.81 ; Other allergic rhinitis J30.89 and Other chronic allergic conjunctivitis H10.45 [facility] [address] [place] [address] [employer] [address] [address] 09/14/2024 Brigida Valdivia Allergic rhinitis du e to pollen J30.1 ; Allergic rhinitis due to animal (cat) (dog) hair and dander J30.81 ; Other allergic rhinitis J30.89 and Other chronic allergic conjunctivitis H10.45 [facility] [address] [place] [address] [employer] [address] [address] 09/21/2024 Brigidanatalia Valdivia Allergic rhinitis du e to pollen J30.1 ; Allergic rhinitis due to animal (cat) (dog) hair and dander J30.81 ; Other allergic rhinitis J30.89 and Other chronic allergic conjunctivitis H10.45 [facility] [address] [place], [place] [address] [address] [address] 09/28/2024 Brigida Shea Allergic rhinitis du e to pollen J30.1 ; Allergic rhinitis due to animal (cat) (dog) hair and dander J30.81 ; Other allergic rhinitis J30.89 and Other chronic allergic conjunctivitis H10.45 [facility] [address] [place], [place] [address] [address] [address] 10/07/2024 Brigida Shea Allergic rhinitis du e to pollen J30.1 ; Allergic rhinitis due to animal (cat) (dog) hair and dander J30.81 ; Other allergic rhinitis J30.89 and Other chronic allergic conjunctivitis H10.45 [facility] [address] [place] [address] [employer] [address] [address] 10/12/2024 Brigida Valdivia Allergic rhinitis du e to pollen J30.1 ; Allergic rhinitis due to animal (cat) (dog) hair and dander J30.81 ; Other allergic rhinitis J30.89 and Other chronic allergic conjunctivitis H10.45 [facility] [address] [place], [place] [address] [address] [place] [address] 10/19/2024 Brigida Shea Allergic rhinitis du e to pollen J30.1 ; Allergic rhinitis due to animal (cat) (dog) hair and dander J30.81 ; Other allergic rhinitis J30.89 and Other chronic allergic conjunctivitis H10.45 [facility] [address] [place] [address] [employer] [address] [address] 10/26/2024 Brigida Villatorom Allergic rhinitis du e to pollen J30.1 ; Allergic rhinitis due to animal (cat) (dog) hair and dander J30.81 ; Other allergic rhinitis J30.89 and Other chronic allergic conjunctivitis H10.45 [facility] [address] [place] [address] [employer] [address] [address] 11/09/2024 Brigidanatalia Villatorom Allergic rhinitis du e to pollen J30.1 ; Allergic rhinitis due to animal (cat) (dog) hair and dander J30.81 ; Other allergic rhinitis J30.89 and Other chronic allergic conjunctivitis H10.45 [facility] [address] [place], [place] [address] [address] [place] [address] 06/01/2024 Brigida Shea Allergic rhinitis du e to pollen J30.1 ; Allergic rhinitis due to animal (cat) (dog) hair and dander J30.81 ; Other allergic rhinitis J30.89 and Other chronic allergic conjunctivitis H10.45 [facility] [address] [place], [place] [address] [address] [place] [address] 06/08/2024 Brigida Shea Allergic rhinitis du e to pollen J30.1 ; Allergic rhinitis due to animal (cat) (dog) hair and dander J30.81 ; Other allergic rhinitis J30.89 and Other chronic allergic conjunctivitis H10.45 [facility] [address] [place] [address] [employer] [address] [place] [phone] 06/29/2024 Brigidanatalia Villatorom Allergic rhinitis du e to pollen J30.1 ; Allergic rhinitis due to animal (cat) (dog) hair and dander J30.81 ; Other allergic rhinitis J30.89 and Other chronic allergic conjunctivitis H10.45 [facility] [address] [place], [place] [address] [address] [place] [phone] 07/07/2024 Brigida Shea Allergic rhinitis du e to pollen J30.1 ; Allergic rhinitis due to animal (cat) (dog) hair and dander J30.81 ; Other allergic rhinitis J30.89 and Other chronic allergic conjunctivitis H10.45 [facility] [address] [place] [address] [employer] [address] [address] 07/14/2024 Brigidanatalia Villatorom Allergic rhinitis du e to pollen J30.1 ; Allergic rhinitis due to animal (cat) (dog) hair and dander J30.81 ; Other allergic rhinitis J30.89 and Other chronic allergic conjunctivitis H10.45 [facility] [address] [place] [address] [employer] [address] [address] 07/20/2024 Brigida Shea Allergic rhinitis du e to pollen J30.1 ; Allergic rhinitis due to animal (cat) (dog) hair and dander J30.81 ; Other allergic rhinitis J30.89 and Other chronic allergic conjunctivitis H10.45 [facility] [address] [place], [place] [address] [address] [place] [phone] 07/27/2024 Brigida Shea Allergic rhinitis du e to pollen J30.1 ; Allergic rhinitis due to animal (cat) (dog) hair and dander J30.81 ; Other allergic rhinitis J30.89 and Other chronic allergic conjunctivitis H10.45 [facility] [address] [place], [place] [address] [address] [place] [phone] 08/03/2024 Brigida Shea Allergic rhinitis du e to pollen J30.1 ; Allergic rhinitis due to animal (cat) (dog) hair and dander J30.81 ; Other allergic rhinitis J30.89 and Other chronic allergic conjunctivitis H10.45 [facility] [address] [facility] [address] [place] [address] 08/17/2024 Brigida Valdivia Allergic rhinitis du e to pollen J30.1 ; Allergic rhinitis due to animal (cat) (dog) hair and dander J30.81 ; Other allergic rhinitis J30.89 and Other chronic allergic conjunctivitis H10.45 Assessments Encounter Date Diagnosis (ICD Code) Assessment Notes Treatment Notes Treatment Clinical Notes Section Notes 06/01/2024 Allergic rhinitis due to pollen (ICD-10 - J30.1) 06/08/2024 Allergic rhinitis due to pollen (ICD-10 - J30.1) 06/15/2024 Allergic rhinitis due to pollen (ICD-10 - J30.1) 06/29/2024 Allergic rhinitis due to pollen (ICD-10 - J30.1) 07/07/2024 Allergic rhinitis due to pollen (ICD-10 - J30.1) 07/14/2024 Allergic rhinitis due to pollen (ICD-10 - J30.1) 07/20/2024 Allergic rhinitis due to pollen (ICD-10 - J30.1) 07/27/2024 Allergic rhinitis due to pollen (ICD-10 - J30.1) 08/03/2024 Allergic rhinitis due to pollen (ICD-10 - J30.1) 07/27/2024 Moderate persistent asthma, uncomplicated (ICD-10 - J45.40) 08/17/2024 Allergic rhinitis due to pollen (ICD-10 - J30.1) 08/19/2024 Allergic rhinitis due to pollen (ICD-10 - J30.1) Fannie clearly suffers from atopic disease based upon our skin testing and clinical history. Accordingly, we have introduced a new, aggressive medication regimen, discussed nasal washes and allergy-specific avoidance measures. We also discussed adjunctive therapies including subcutaneous, specific allergen immunotherapy as relates to the treatment and prevention of atopic disease. She is tolerating SCIT without large local or systemic symptoms. She was instructed to carry her epinephrine autoinjector for 2 hours after leaving the office. 08/24/2024 Allergic rhinitis due to pollen (ICD-10 - J30.1) 08/31/2024 Allergic rhinitis due to pollen (ICD-10 - J30.1) 09/07/2024 Allergic rhinitis due to pollen (ICD-10 - J30.1) 09/14/2024 Allergic rhinitis due to pollen (ICD-10 - J30.1) 09/21/2024 Allergic rhinitis due to pollen (ICD-10 - J30.1) 09/28/2024 Allergic rhinitis due to pollen (ICD-10 - J30.1) 10/07/2024 Allergic rhinitis due to pollen (ICD-10 - J30.1) 10/12/2024 Allergic rhinitis due to pollen (ICD-10 - J30.1) 10/19/2024 Allergic rhinitis due to pollen (ICD-10 - J30.1) 10/26/2024 Allergic rhinitis due to pollen (ICD-10 - J30.1) 11/09/2024 Allergic rhinitis due to pollen (ICD-10 - J30.1) 08/19/2024 Moderate persistent asthma, uncomplicated (ICD-10 - J45.40) Persistent asthma and spirometry at her initial visit showed obstruction with significant improvement post bronchodilator meeting ATS criteria for asthma. Today, spirometry is normal. ACT 23. We discussed changing inhalers, but she feels cough is resolving so plan to continue Advair and prn albuterol. Instructed to call the office if cough does not resolve in a few weeks. 03/31/2025 Allergic rhinitis due to pollen (ICD-10 - J30.1) Fannie clearly suffers from atopic disease based upon our skin testing and clinical history. Accordingly, we have introduced a new, aggressive medication regimen, discussed nasal washes and allergy-specific avoidance measures. We also discussed adjunctive therapies including subcutaneous, specific allergen immunotherapy as relates to the treatment and prevention of atopic disease. She has missed several months of immunotherapy and plan to restart. Restart at 1:10 all vials at 0.1 mL 04/21/2025 Allergic rhinitis due to pollen (ICD-10 - J30.1) 04/28/2025 Allergic rhinitis due to pollen (ICD-10 - J30.1) 05/05/2025 Allergic rhinitis due to pollen (ICD-10 - J30.1) 03/31/2025 Moderate persistent asthma, uncomplicated (ICD-10 - J45.40) Persistent asthma and spirometry at her initial visit showed obstruction with significant improvement post bronchodilator meeting ATS criteria for asthma. Today, spirometry is normal. ACT 25. Most likely asthma has improved with weight loss. Continue prn albuterol and restart Advair if needed. 05/27/2025 Allergic rhinitis due to pollen (ICD-10 - J30.1) 05/27/2025 Allergic rhinitis due to animal (cat) (dog) hair and dander (ICD-10 - J30.81) 03/31/2025 Allergic rhinitis due to animal (cat) (dog) hair and dander (ICD-10 - J30.81) Follow allergen avoidance, meds and continue SCIT as an adjunctive treatment to current regimen 05/05/2025 Allergic rhinitis due to animal (cat) (dog) hair and dander (ICD-10 - J30.81) 04/28/2025 Allergic rhinitis due to animal (cat) (dog) hair and dander (ICD-10 - J30.81) 04/21/2025 Allergic rhinitis due to animal (cat) (dog) hair and dander (ICD-10 - J30.81) 08/19/2024 Allergic rhinitis due to animal (cat) (dog) hair and dander (ICD-10 - J30.81) Follow allergen avoidance, meds and continue SCIT as an adjunctive treatment to current regimen 11/09/2024 Allergic rhinitis due to animal (cat) (dog) hair and dander (ICD-10 - J30.81) 10/26/2024 Allergic rhinitis due to animal (cat) (dog) hair and dander (ICD-10 - J30.81) 10/19/2024 Allergic rhinitis due to animal (cat) (dog) hair and dander (ICD-10 - J30.81) 10/12/2024 Allergic rhinitis due to animal (cat) (dog) hair and dander (ICD-10 - J30.81) 10/07/2024 Allergic rhinitis due to animal (cat) (dog) hair and dander (ICD-10 - J30.81) 09/28/2024 Allergic rhinitis due to animal (cat) (dog) hair and dander (ICD-10 - J30.81) 09/21/2024 Allergic rhinitis due to animal (cat) (dog) hair and dander (ICD-10 - J30.81) 09/14/2024 Allergic rhinitis due to animal (cat) (dog) hair and dander (ICD-10 - J30.81) 09/07/2024 Allergic rhinitis due to animal (cat) (dog) hair and dander (ICD-10 - J30.81) 08/31/2024 Allergic rhinitis due to animal (cat) (dog) hair and dander (ICD-10 - J30.81) 08/24/2024 Allergic rhinitis due to animal (cat) (dog) hair and dander (ICD-10 - J30.81) 08/17/2024 Allergic rhinitis due to animal (cat) (dog) hair and dander (ICD-10 - J30.81) 08/03/2024 Allergic rhinitis due to animal (cat) (dog) hair and dander (ICD-10 - J30.81) 07/27/2024 Allergic rhinitis due to animal (cat) (dog) hair and dander (ICD-10 - J30.81) 07/20/2024 Allergic rhinitis due to animal (cat) (dog) hair and dander (ICD-10 - J30.81) 07/14/2024 Allergic rhinitis due to animal (cat) (dog) hair and dander (ICD-10 - J30.81) 07/07/2024 Allergic rhinitis due to animal (cat) (dog) hair and dander (ICD-10 - J30.81) 06/29/2024 Allergic rhinitis due to animal (cat) (dog) hair and dander (ICD-10 - J30.81) 06/15/2024 Allergic rhinitis due to animal (cat) (dog) hair and dander (ICD-10 - J30.81) 06/08/2024 Allergic rhinitis due to animal (cat) (dog) hair and dander (ICD-10 - J30.81) 06/01/2024 Allergic rhinitis due to animal (cat) (dog) hair and dander (ICD-10 - J30.81) 06/01/2024 Other allergic rhinitis (ICD-10 - J30.89) 06/08/2024 Other allergic rhinitis (ICD-10 - J30.89) 06/15/2024 Other allergic rhinitis (ICD-10 - J30.89) 06/29/2024 Other allergic rhinitis (ICD-10 - J30.89) 07/07/2024 Other allergic rhinitis (ICD-10 - J30.89) 07/14/2024 Other allergic rhinitis (ICD-10 - J30.89) 07/20/2024 Other allergic rhinitis (ICD-10 - J30.89) 07/27/2024 Other allergic rhinitis (ICD-10 - J30.89) 08/03/2024 Other allergic rhinitis (ICD-10 - J30.89) 08/17/2024 Other allergic rhinitis (ICD-10 - J30.89) 08/19/2024 Other allergic rhinitis (ICD-10 - J30.89) 08/24/2024 Other allergic rhinitis (ICD-10 - J30.89) 08/31/2024 Other allergic rhinitis (ICD-10 - J30.89) 09/07/2024 Other allergic rhinitis (ICD-10 - J30.89) 09/14/2024 Other allergic rhinitis (ICD-10 - J30.89) 09/21/2024 Other allergic rhinitis (ICD-10 - J30.89) 09/28/2024 Other allergic rhinitis (ICD-10 - J30.89) 10/07/2024 Other allergic rhinitis (ICD-10 - J30.89) 10/12/2024 Other allergic rhinitis (ICD-10 - J30.89) 10/19/2024 Other allergic rhinitis (ICD-10 - J30.89) 10/26/2024 Other allergic rhinitis (ICD-10 - J30.89) 11/09/2024 Other allergic rhinitis (ICD-10 - J30.89) 03/31/2025 Other allergic rhinitis (ICD-10 - J30.89) 04/21/2025 Other allergic rhinitis (ICD-10 - J30.89) 04/28/2025 Other allergic rhinitis (ICD-10 - J30.89) 05/05/2025 Other allergic rhinitis (ICD-10 - J30.89) 05/27/2025 Other allergic rhinitis (ICD-10 - J30.89) 04/21/2025 Other chronic allergic conjunctivitis (ICD-10 - H10.45) 05/27/2025 Other chronic allergic conjunctivitis (ICD-10 - H10.45) 05/05/2025 Other chronic allergic conjunctivitis (ICD-10 - H10.45) 04/28/2025 Other chronic allergic conjunctivitis (ICD-10 - H10.45) 03/31/2025 Other chronic allergic conjunctivitis (ICD-10 - H10.45) Given ocular signs and symptoms I encouraged allergy avoidance measures and meds as above. If symptoms persist, consider adding additional medications including intraocular antihistamine/mast cell stabilizer, PRN 08/24/2024 Other chronic allergic conjunctivitis (ICD-10 - H10.45) 11/09/2024 Other chronic allergic conjunctivitis (ICD-10 - H10.45) 10/26/2024 Other chronic allergic conjunctivitis (ICD-10 - H10.45) 10/19/2024 Other chronic allergic conjunctivitis (ICD-10 - H10.45) 10/12/2024 Other chronic allergic conjunctivitis (ICD-10 - H10.45) 10/07/2024 Other chronic allergic conjunctivitis (ICD-10 - H10.45) 09/28/2024 Other chronic allergic conjunctivitis (ICD-10 - H10.45) 09/21/2024 Other chronic allergic conjunctivitis (ICD-10 - H10.45) 09/14/2024 Other chronic allergic conjunctivitis (ICD-10 - H10.45) 09/07/2024 Other chronic allergic conjunctivitis (ICD-10 - H10.45) 08/31/2024 Other chronic allergic conjunctivitis (ICD-10 - H10.45) 08/19/2024 Other chronic allergic conjunctivitis (ICD-10 - H10.45) Given ocular signs and symptoms I encouraged allergy avoidance measures and meds as above. If symptoms persist, consider adding additional medications including intraocular antihistamine/mast cell stabilizer, PRN 07/27/2024 Other chronic allergic conjunctivitis (ICD-10 - H10.45) 08/17/2024 Other chronic allergic conjunctivitis (ICD-10 - H10.45) 08/03/2024 Other chronic allergic conjunctivitis (ICD-10 - H10.45) 07/20/2024 Other chronic allergic conjunctivitis (ICD-10 - H10.45) 07/14/2024 Other chronic allergic conjunctivitis (ICD-10 - H10.45) 07/07/2024 Other chronic allergic conjunctivitis (ICD-10 - H10.45) 06/29/2024 Other chronic allergic conjunctivitis (ICD-10 - H10.45) 06/15/2024 Other chronic allergic conjunctivitis (ICD-10 - H10.45) 06/08/2024 Other chronic allergic conjunctivitis (ICD-10 - H10.45) 06/01/2024 Other chronic allergic conjunctivitis (ICD-10 - H10.45) Plan Of Treatment Pending Test Test Name Order Date Spirometry 01/21/2024 Insurance Providers Payer Name Payer Address Payer Phone Subscriber Number Group Number Insured Name Patient Relationship to Insured Coverage Start Date Coverage End Date [facility] [address] [place] [address] [id number] Fannie Perez Self - patient is the insured 3 Medical (General) History Medical History History ICD Code Moderate persistent asthma, uncomplicate d J45.40 Depression Surgical History Surgery Date(Month/Year) 03/03/1993 Endometrial ablation 01/23/2011 Tubal ligation 02/10/2013
--- OUTSIDE RECORDS SUMMARY | 2025-05-31 11:03 | XMS_ITS | Clinical Summary ---
Author Organization [facility] Address [address] [place] [address] Care Team Providers Care Scale Installer Name Role Phone Unavailable Primary Care Provider Unavailabl e Social History Tobacco Use Types Packs/Day Years Used Date Smoking Tobacco: Never Assessed Comments Unknown Sex and Gender Information Value Date Recorded Sex Assigned at Not on file Legal Sex Female 10:12 AM CDT Gender Identity Not on file Sexual Orientation Not on file Plan of Treatment Health Maintenance Due Date Last Done Comments Cervical Cancer Screening Pa p Smear (Age 30 to 64) Every 3 Years 1973 Colorectal Cancer Screening Colonoscopy (10 Years) 1973 Annual Physical 02/09/1976 Hepatitis C 1991 DTaP, Tdap and Td Vaccines ( 1 - Tdap) 02/09/1992 Hepatitis B Vaccines (1 of 3 - 19+ 3-dose series) 02/09/1992 Cervical Cancer Screening Pa p with HPV Testing (Age 30 to 64) Every 5 Years 2003 Cervical Cancer Screening with HPV 2003 Mammogram Screening 2013 Pneumococcal Vaccine: 50+ Ye ars (1 of 1 - PCV) 2023 Zoster Vaccines (1 of 2) 2023 COVID-19 Vaccine ( - 2023-2 5 season) 2024 PHQ-2 (Physician Ute) 11/11/2024 Meningococcal B Vaccine Aged Out No l onger eligible based on patient's age to complete this topic Meningococcal Vaccine Aged Out No priya catalina eligible based on patient's age to complete this topic RSV Immunizations Under 20 Months Aged Out No longer eligible based on patient's age to complete this topic Insurance
== END 2025-05-31 10:59 | disposition home or self-care (01) ==
LOC: ANHIMG 10:59
PROVIDERS: PCP Family Medicine; Visit Provider Obstetrics & Gynecology
DX: Z12.31 Encounter for screening mammogram for malignant neoplasm of breast (principal); R92.8 Other abnormal and inconclusive findings on diagnostic imaging of breast
CPT/HCPCS: 77063; 77067

== ENCOUNTER 2025-06-18 08:27 | Outpatient (CLI) | payer BC, SELFPAY ==
--- NOTE | ~2025-06-18 | MM_ITS ---
EXAMINATION: MM diagnostic basil RT w nilsa INDICATION: 50-year old female; BI-RADS 0, callback from screening to evaluate calcifications in the right breast. COMPARISON: 05/31/2025 and 08/12/2018. TECHNIQUE: Digital breast magnification CC and ML views of RIGHT breast were obtained. FINDINGS: The breasts are heterogeneously dense, which may obscure small masses. A group of pleomorphic microcalcifications that spans 0.5 cm seen in superior lateral location at mid dle to posterior third in the RIGHT breast correlates to the area of concern. IMPRESSION: Suspicious RIGHT breast a group of pleomorphic microcalcifications in the superior latera l location. Biopsy is recommended. RECOMMENDATION: Stereotactic biopsy of superior lateral RIGHT breast calcifications. BI-RADS 4, SUSPICIOUS Reviewed, dictated and finalized at location B. IMPRESSION: Suspicious RIGHT breast a group of pleomorphic microcalcifications in the superior lateral location. Biopsy is recommended. RECOMMENDATION: Stereotactic biopsy of superior lateral RIGHT breast calcifications. BI-RADS 4, SUSPICIOUS
--- OUTSIDE RECORDS SUMMARY | 2025-06-18 08:30 | XMS_ITS | Clinical Summary ---
Author Organization [facility] Address [address] [place] [address] Phone Care Team Providers Care Heater Planer Operator Name Role Phone Unavailable Primary Care Provider [...] Comments Blood Pressure 126/80 11/26/2023 3:04 PM CAR OILER Pulse - - Temperature - - Respiratory Rate - - Oxygen Saturation - - Inhaled Oxygen Concentration - - Weight 86.2 kg (190 lb) 11/26/2023 3:04 PM CAR OILER Height 149.9 cm (4' 11) 11/26/2023 3:04 PM CAR OILER Body Mass Index 38.38 11/26/2023 3:04 PM CAR OILER Plan of Treatment Health Maintenance Due Date [...] BASED SCREEN PAP Routine 11/26/2023 4:16 PM CAR OILER Well woman exam with routine gynecological exam Screening for HPV (human papillomavirus) Screening for venereal disease (VD) Cervical cancer screening from Last 3 Months or Most Recently Relevant to Health Maintenance Results * CERV/VAG CYTO AGE BASED SCREEN PAP (11/26/2023 4:16 PM CAR OILER) COMMENT (PAP): [facility] Comment: This order for age-based cervical cancer and STI screening follows ACOG guidelines(PB 168, 140, DHB139). See individual assays for performing site location. CLINICAL INFORMATION [facility] Comment:None given LAST MENSTRUAL PERIOD [facility] Comment:NONE GIVEN PREV PAP: [facility] Comment:NONE GIVEN PREV BX: [facility] Comment:NONE GIVEN SOURCE [facility] Comment:Endocervix ADEQUACY: [facility] Comment: Satisfactory for evaluation. Endocervical/transformation zone component present. Age and/or menstrual status not provided PAP INTERP [facility] Comment: Cytology Results: Negative for intraepithelial lesion or malignancy. COMMENT (PAP TEST) [facility] Comment: This Pap test has been evaluated with computer assisted technology. FUNERAL PRE NEED CONSULTANT: Angie Frias Comment: AGNES WILLIS(ASCP) CT screening location: [place] [address] [place] [address] EXPLANATORY NOTE [facility] Comment: EXPLANATORY NOTE: The Pap is [...] information. HPV E6/E7 Not Detected Not Detected [facility] Comment: Methodology: Tank Crewmember-Mediated Amplification This assay detects E6/E7 viral messenger RNA (mRNA) from 14 high-risk HPV types (16,18,31,33,35,39,45,51,52,56,58,59,66,68). Cervical sources are required for HPV testing. If a vaginal source from a patient who has had a total hysterectomy with removal of cervix was submitted, please contact the testing laboratory for alternative testing options. For additional information, please refer to http://education.auctionpoint/faq/LLN024s7 (This link if provided for information/ educational purposes only.) FASTING: UNKNOWN Test Performed at: [facility] [address] [place] [address] Kim FUENTES Genital SWAB OF ENDOCERVIX / Unknown 11/26/2023 4:16 PM CAR OILER 11/27/2023 2:24 AM CAR OILER us Gabriela Srinivasan DO PATHOLOGY/CYTOLOGY ORDERABLES F inal Result [facility] [phone] [place] [address] from Last 3 Months or Most Recently Relevant to Health Maintenance Insurance BLUE ACCESS/TRUE BLUE PPO
--- OUTSIDE RECORDS SUMMARY | 2025-06-18 08:30 | XMS_ITS ---
Author Organization [facility] [place] ([address]) Address [address] [place] [address] Care Team Providers Care Overnight Cashier Name Role Phone Jose ManuelStacey Primary Care Provider Brigida Elliott Unavailable [phone] REASON FOR VISIT SCIT - Traditional Schedule Allergy immunotherapy Social History Sex Assigned At : Social History Observation Description Sex Assigned At Female Encounters Encounter Location Date Provider Diagnosis [facility] [address] [place] [address] 05/12/2025 Brigida Valdivia Allergic rhinitis du e [...] Appt Details Follow Up: 1 Week, Reason: Provider Name:Brigida wray, 06/28/2025 10:00:00 AM, [address], [address], [address], Provider Name:Brigida wray, 07/05/2025 10:00:00 AM, [address] [facility], [address], [place], [address], Progress Notes * Fannie PEREZDOB:1975 (50 yo F)Acc No.[id number]:05/12/2025 SCIT-Aeroallergen Patient: Fannie BARBOSA Provider: Merlyn Valdivia MD :1975 A ge:50 Y S ex:Female Date:05/12/2025 Address:[address] [place], [place] [id number] Pcp:Stacey Richard Subjective: * Chief Complaints: * [...] Information: * Visit Code: * Procedure Codes: 87393 IMMUNOTHERAPY INJECTIONS. * Electronic signature of Lisa bubba Valdivia MD on 06/18/2025 at 08:30 AM CDT Sign off status: Pending * Provider: Merlyn Valdivia MD Date: 0 05/12/2025 Generated for Jayla shelley/Tristan/Giftyitting on: 0 06/18/2025 08:30 AM CDT History and Physical Notes * [...]
--- OUTSIDE RECORDS SUMMARY | 2025-06-18 08:30 | XMS_ITS | Clinical Summary ---
Author Organization [facility] Address [address] [place] [address] Care Team Providers Care Salesperson Wigs Name Role Phone Unavailable Primary Care Provider [...] - 2023-2 5 season) 2024 PHQ-2 (Physician Eyak) 11/11/2024 Meningococcal B Vaccine Aged Out No l onger eligible based on patient's age to complete this topic Meningococcal Vaccine Aged Out No priya catalina eligible based on patient's age to complete this topic RSV Immunizations Under 20 Months Aged Out No longer eligible based on patient's age to complete this topic Insurance
--- OUTSIDE RECORDS SUMMARY | 2025-06-18 08:31 | XMS_ITS | Patient Health Record ---
Author Organization [facility] [employer] [place] ([address]) Address [address] [place] [address] Care Team Providers Care Receptionist Clerk Name Role Phone Jose ManuelStacey Primary Care Provider Brigida Elliott Unavailable [phone] Allergies Allergen (clinical drug ingredient) Drug/Non Drug [...] Duration) Notes Start Date End Date Status ALBUTEROL 90 mcg/inh 2 puff(s) inhaled e very 6 hours Active FLUTICASONE-SALMETEROL 500 mcg-50 mcg 1 INH inhaled 2 times a day; Duration: 90 days Active FEXOFENADINE HYDROCHLORIDE 180 mg 1 tab(s) orally once a day Active EPINEPHRINE AUTO-INJECTOR 0.3 mg as directed intramuscularly once; Duration: 1 days Active Social History Tobacco Use: Social History Observation Description Date Details (start date - stop date) Never Smoker NA - NA Sex Assigned At : Social History Observation Description Sex Assigned At Female Tobacco Control (Standard) Question Answer Notes Tobacco use: Nonsmoker Problems Problem Type SNOMED Code ICD Code Onset Dates Problem Status W/U Status Risk Notes Problem Morbid obesity (disorder) (787818435) Morbid (severe) obesity due to excess calories (E66.01) Active confirmed Problem Chronic allergic conjunctivitis (03875750) Other chronic allergic conjunctivitis (H10.45) Active confirmed Problem Allergic rhinitis caused by pollen (disorder) (81069550) Allergic rhinitis due to pollen (J30.1) Active confirmed Problem Allergic rhinitis (89109133) Other allergic rhinitis (J30.89) Active confirmed Problem Uncomplicated moderate persistent asthma (538247104) Moderate persistent asthma, uncomplicated (J45.40) Active confirmed Problem Chronic fatigue syndrome (disorder) (36705253) Chronic fatigue, unspecified (R53.82) Active confirmed Problem Allergic rhinitis caused by animal hair and dander (530913028809704) Allergic rhinitis due to animal (cat) (dog) hair and dander (J30.81) Active confirmed Vital Signs Blood pressure diastolic 73 mm Hg 03/31/2025 Oximetry 97 % 03/31/2025 Height 60.2 in 03/31/2025 Blood pressure systolic 115 mm Hg 03/31/2025 Weight 138.4 lbs 03/31/2025 BMI 26.85 kg/m2 03/31/2025 Encounters Encounter Location Date Provider Diagnosis [facility] [address] [place] [address] 07/27/2024 Brigida Valdivia Allergic rhinitis du e to pollen J30.1 ; Allergic rhinitis due to animal (cat) (dog) hair and dander J30.81 ; Other allergic rhinitis J30.89 and Other chronic allergic conjunctivitis H10.45 [facility] [address] [place] [address] 07/20/2024 Brigida Valdivia Allergic rhinitis du e to pollen J30.1 ; Allergic rhinitis due to animal (cat) (dog) hair and dander J30.81 ; Other allergic rhinitis J30.89 and Other chronic allergic conjunctivitis H10.45 [facility] [address] [place] [address] 07/14/2024 Brigida Valdivia Allergic rhinitis du e to pollen J30.1 ; Allergic rhinitis due to animal (cat) (dog) hair and dander J30.81 ; Other allergic rhinitis J30.89 and Other chronic allergic conjunctivitis H10.45 [facility] [address] [place] [address] [employer] [address] [place] [address] 07/07/2024 Brigida Valdivia Allergic rhinitis du e to pollen J30.1 ; Allergic rhinitis due to animal (cat) (dog) hair and dander J30.81 ; Other allergic rhinitis J30.89 and Other chronic allergic conjunctivitis H10.45 [facility] [address] [place] [address] [employer] [address] [address] 06/29/2024 Brigida Valdivia Allergic rhinitis du e to pollen J30.1 ; Allergic rhinitis due to animal (cat) (dog) hair and dander J30.81 ; Other allergic rhinitis J30.89 and Other chronic allergic conjunctivitis H10.45 [facility] [address] [place] [address] [employer] [address] [place] [address] 06/14/2025 Brigida Valdivia Allergic rhinitis du e to pollen J30.1 ; Allergic rhinitis due to animal (cat) (dog) hair and dander J30.81 ; Other allergic rhinitis J30.89 and Other chronic allergic conjunctivitis H10.45 [facility] [address] [place] [address] [employer] [address] [address] 05/27/2025 Brigida Valdivia Allergic rhinitis du e to pollen J30.1 ; Allergic rhinitis due to animal (cat) (dog) hair and dander J30.81 ; Other allergic rhinitis J30.89 and Other chronic allergic conjunctivitis H10.45 [facility] [address] [place] [address] [employer] [address] [address] 05/05/2025 Brigida Valdivia Allergic rhinitis du e to pollen J30.1 ; Allergic rhinitis due to animal (cat) (dog) hair and dander J30.81 ; Other allergic rhinitis J30.89 and Other chronic allergic conjunctivitis H10.45 [facility] [address] [place], [place] [address] [address] [place] [address] 04/28/2025 Brigida Valdivia Allergic rhinitis du e to pollen J30.1 ; Allergic rhinitis due to animal (cat) (dog) hair and dander J30.81 ; Other allergic rhinitis J30.89 and Other chronic allergic conjunctivitis H10.45 [facility] [address] [place], [place] [address] [address] [place] [phone] 04/21/2025 Brigida Valdivia Allergic rhinitis du e to pollen J30.1 ; Allergic rhinitis due to animal (cat) (dog) hair and dander J30.81 ; Other allergic rhinitis J30.89 and Other chronic allergic conjunctivitis H10.45 [facility] [address] [place], [place] [address] [address] [place] [phone] 11/09/2024 Brigidanatalia Valdivia Allergic rhinitis du e to pollen J30.1 ; Allergic rhinitis due to animal (cat) (dog) hair and dander J30.81 ; Other allergic rhinitis J30.89 and Other chronic allergic conjunctivitis H10.45 [facility] [address] [place], [place] [address] [address] [place] [phone] 10/26/2024 Brigida Valdivia Allergic rhinitis du e to pollen J30.1 ; Allergic rhinitis due to animal (cat) (dog) hair and dander J30.81 ; Other allergic rhinitis J30.89 and Other chronic allergic conjunctivitis H10.45 [facility] [address] [place] [address] [employer] [address] [place] [phone] 10/19/2024 Brigida Valdivia Allergic rhinitis du e to pollen J30.1 ; Allergic rhinitis due to animal (cat) (dog) hair and dander J30.81 ; Other allergic rhinitis J30.89 and Other chronic allergic conjunctivitis H10.45 [facility] [address] [place], [place] [address] [address] [place] [phone] 10/12/2024 Brigida Valdivia Allergic rhinitis du e to pollen J30.1 ; Allergic rhinitis due to animal (cat) (dog) hair and dander J30.81 ; Other allergic rhinitis J30.89 and Other chronic allergic conjunctivitis H10.45 [facility] [address] [place], [place] [address] [address] [place] [address] 10/07/2024 Brigida Valdivia Allergic rhinitis du e to pollen J30.1 ; Allergic rhinitis due to animal (cat) (dog) hair and dander J30.81 ; Other allergic rhinitis J30.89 and Other chronic allergic conjunctivitis H10.45 [facility] [address] [place], [place] [address] [address] [place] [phone] 09/28/2024 Brigida Valdivia Allergic rhinitis du e to pollen J30.1 ; Allergic rhinitis due to animal (cat) (dog) hair and dander J30.81 ; Other allergic rhinitis J30.89 and Other chronic allergic conjunctivitis H10.45 [facility] [address] [place], [place] [address] [address] [place] [phone] 09/21/2024 Brigida Valdivia Allergic rhinitis du e to pollen J30.1 ; Allergic rhinitis due to animal (cat) (dog) hair and dander J30.81 ; Other allergic rhinitis J30.89 and Other chronic allergic conjunctivitis H10.45 [facility] [address] [place], [place] [address] [address] [place] [phone] 09/14/2024 Brigida Valdivia Allergic rhinitis du e to pollen J30.1 ; Allergic rhinitis due to animal (cat) (dog) hair and dander J30.81 ; Other allergic rhinitis J30.89 and Other chronic allergic conjunctivitis H10.45 [facility] [address] [place], [place] [address] [address] [place] [address] 09/07/2024 Brigida Valdivia Allergic rhinitis du e to pollen J30.1 ; Allergic rhinitis due to animal (cat) (dog) hair and dander J30.81 ; Other allergic rhinitis J30.89 and Other chronic allergic conjunctivitis H10.45 [facility] [address] [place], [place] [address] [address] [place] [phone] 08/31/2024 Brigida Valdivia Allergic rhinitis du e to pollen J30.1 ; Allergic rhinitis due to animal (cat) (dog) hair and dander J30.81 ; Other allergic rhinitis J30.89 and Other chronic allergic conjunctivitis H10.45 [facility] [address] [place], [place] [address] [address] [place] [address] 08/24/2024 Brigida Valdivia Allergic rhinitis du e to pollen J30.1 ; Allergic rhinitis due to animal (cat) (dog) hair and dander J30.81 ; Other allergic rhinitis J30.89 and Other chronic allergic conjunctivitis H10.45 [facility] [address] [place] [phone] 08/17/2024 Brigida Valdivia Allergic rhinitis du e to pollen J30.1 ; Allergic rhinitis due to animal (cat) (dog) hair and dander J30.81 ; Other allergic rhinitis J30.89 and Other chronic allergic conjunctivitis H10.[address] [address] 03/31/2025 Brigidanatalia Valdivia Allergic rhinitis du e to pollen J30.1 ; Moderate persistent asthma, uncomplicated J45.40 ; Allergic rhinitis due to animal (cat) (dog) hair and dander J30.81 ; Other allergic rhinitis J30.89 and Other chronic allergic conjunctivitis H10.[address] [address] 08/19/2024 Brigida Valdivia Allergic rhinitis du e to pollen J30.1 ; Moderate persistent asthma, uncomplicated J45.40 ; Allergic rhinitis due to animal (cat) (dog) hair and dander J30.81 ; Other allergic rhinitis J30.89 and Other chronic allergic conjunctivitis H10.[address] [address] 08/03/2024 Brigida Valdivia Allergic rhinitis du e to pollen J30.1 ; Allergic rhinitis due to animal (cat) (dog) hair and dander J30.81 ; Other allergic rhinitis J30.89 and Other chronic allergic conjunctivitis H10.[address] [address] 03/31/2025 Brigida Valdivia [address] [address] 07/27/2024 Brigida Valdivia Moderate persistent asthma, uncomplicated J45.40 Assessments Encounter Date Diagnosis (ICD Code) Assessment Notes Treatment Notes Treatment Clinical Notes Section Notes 06/29/2024 Allergic rhinitis due to pollen (ICD-10 [...] - J30.1) 05/27/2025 Allergic rhinitis due to pollen (ICD-10 - J30.1) 03/31/2025 Moderate persistent asthma, uncomplicated (ICD-10 - J45.40) Persistent asthma and spirometry at her initial visit showed obstruction with significant improvement post bronchodilator meeting ATS criteria for asthma. Today, spirometry is normal. ACT 25. Most likely asthma has improved with weight loss. Continue prn albuterol and restart Advair if needed. 06/14/2025 Allergic rhinitis due to pollen (ICD-10 - J30.1) 06/14/2025 Allergic rhinitis due to animal (cat) (dog) hair and dander (ICD-10 - J30.81) 03/31/2025 Allergic rhinitis due to animal (cat) (dog) hair and dander (ICD-10 - J30.81) Follow allergen avoidance, meds and continue SCIT as an adjunctive treatment to current regimen 05/27/2025 Allergic rhinitis due to animal (cat) (dog) hair and dander (ICD-10 - J30.81) 05/05/2025 Allergic rhinitis due to animal (cat) [...] hair and dander (ICD-10 - J30.81) 06/29/2024 Other allergic rhinitis (ICD-10 - J30.89) [...] 05/27/2025 Other allergic rhinitis (ICD-10 - J30.89) 06/14/2025 Other allergic rhinitis (ICD-10 - J30.89) 04/21/2025 Other chronic allergic conjunctivitis (ICD-10 - H10.45) 06/14/2025 Other chronic allergic conjunctivitis (ICD-10 - H10.45) [...] Test Test Name Order Date Spirometry 01/21/2024 Next Appt Details Provider Name:Brigida wray, 06/28/2025 10:00:00 AM, [address] [facility], [address], [address], Provider Name:Brigida wray, 07/05/2025 10:00:00 AM, [address] [facility], [address] [place] [address], [phone], Insurance Providers Payer Name Payer Address Payer Phone Subscriber Number Group Number Insured Name Patient Relationship to Insured Coverage Start Date Coverage End Date [facility] [address] [place] [address] [phone] [id number] Fannie Perez Self - patient is the insured 3 Medical (General) History Medical History History ICD Code Moderate persistent asthma, uncomplicate d J45.40 Depression Surgical History Surgery Date(Month/Year) 03/03/1993 Endometrial ablation 01/23/2011 Tubal ligation 02/10/2013
== END 2025-06-18 08:28 | disposition home or self-care (01) ==
LOC: ANHIMG 08:28
PROVIDERS: PCP Family Medicine; Visit Provider Obstetrics & Gynecology
DX: R92.1 Mammographic calcification found on diagnostic imaging of breast (principal); R92.8 Other abnormal and inconclusive findings on diagnostic imaging of breast
CPT/HCPCS: 77061; 77065; G0279